=== PATIENT | female | born 1955 | race African-American/Black ===

== ENCOUNTER 2016-06-05 11:00 | Emergency (ER) | payer BC ==
[~2016-06-05 11:00] MED LIST: BACDS PO; DIL2TAB PO; DSS PO; GLUCOPHAGE1000 MG PO; HEMOCYTET PO; LEVAQUIN750 MG PO; LEVEMFLXPN SC; LEVEMFLXPN SQ; LISINOPRIL40 MG PO; NORCO1 TA2 PO; NORCO1 TAB PO; NORV5 PO; NOVOLOG SC; NOVOLOG SQ; PRINZIDE1 TA1 PO; PROTONIX PO; TRADJENTA5 MG PO; ZESTRIL20 MG PO
[2017-01-04] MEDS ORDERED: NORV10 PO (13:27)
[2017-01-04] MEDS ORDERED: LIPITOR40 PO (13:28)
[2017-01-04] MEDS ORDERED: COREG12 PO (13:28)
[2017-01-04] MEDS ORDERED: MCZ125 PO (13:29)
[2017-01-04] MEDS ORDERED: LEVEMIR SC (13:29)
[2017-01-04] MEDS ORDERED: TRULICITY0.75 MG/0. SQ (13:30)
[2017-01-04] MEDS ORDERED: MIRALAX POWDER1 PKT PO (13:31)
[2017-01-11] MEDS ORDERED: DIL2TAB PO (14:37)
[2017-01-11] MEDS ORDERED: CYANO1000T PO (14:38)
[2017-01-11] MEDS ORDERED: VITD PO (14:38)
[2017-01-11] MEDS ORDERED: NEUR600 PO (14:40)
[2017-01-11] MEDS ORDERED: NOVOLOG SC ×2 (14:43→14:45)
[2017-01-11] MEDS ORDERED: CONSTULOSE PO (14:46)
== END 2016-06-05 11:22 | disposition home or self-care (01) ==
LOC: ER 11:00
PROC: 0T2BX0Z Change Drainage Device in Bladder, External Approach (ICD-10-PCS; principal; 2016-06-05)
DX: R32 Unspecified urinary incontinence (principal); F17.200 Nicotine dependence, unspecified, uncomplicated; I12.9 Hypertensive chronic kidney disease with stage 1 through stage 4 chronic kidney disease, or unspecified chronic kidney disease; N18.9 Chronic kidney disease, unspecified; E11.9 Type 2 diabetes mellitus without complications; D64.9 Anemia, unspecified; Z79.4 Long term (current) use of insulin; Z79.899 Other long term (current) drug therapy
CPT/HCPCS: 99283